=== PATIENT | female | born 2000 | race Hispanic/Latino ===

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

== ENCOUNTER 2020-02-19 19:33 | Emergency (ER) | payer OTHER, SELFPAY ==
[2020-02-19 20:10] LABS: #Basophils 0.1 thou/uL (0.0-0.2); #Eosinphils 0.1 thou/uL (0.0-0.7); #Lymphocytes 2.7 thou/uL (1.20-3.40); #Monocytes 0.8 thou/uL (0.11-0.59); #Neutrophils 8.2 thou/uL (1.40-6.50); %Basophils 0.5 % (0.0-1.0); %Eosinophils 0.5 % (0.0-10.0); %Lymphocytes 23.2 % (28.0-48.0); %Monocytes 6.6 % (0.0-4.0); %Neutrophils 69.2 % (31.0-61.0); Hemoglobin 12.3 g/dL (12.0-16.0); Mean Corpuscular Hemoglobin 30.8 pg (25.0-35.0); Mean Corpuscular Volume 90.8 fL (78.0-98.0); Mean Platelet Volume 7.9 fL (7.4-10.4); Platelet Count 233 thou/uL (130-400); RBC Distribution Width 11.5 % (11.5-14.5); Red Blood Cell (RBC) Count 4.01 mill/uL (4.00-5.20); White Blood Cell (WBC) Count 11.8 thou/uL (4.8-10.8)
[2020-02-19 21:44] LABS: Bacteria/HPF 3+ HPF (None Seen); Bilirubin Negative (Negative); Blood, Urine Negative (Negative); Clarity Extra Turbid (Clear); Glucose, Urine (Dipstick) Normal (Negative); Ketone, Urine Negative (Negative); Leukocyte 25 Leu/uL (Negative); Nitrite Negative (Negative); Protein, Urine (Dipstick) 10 mg/dL (Neg-Trace); RBC/HPF 0-3 HPF (0-3); Specific Gravity, Urine 1.018 (1.002-1.036); Squamous Epithelial 21-50 HPF (0-3); Urobilinogen Normal mg/dL (Less than 2)
== END 2020-02-19 23:39 | disposition home or self-care (01) ==
LOC: ERS 19:33
DX: O23.11 Infections of bladder in pregnancy, first trimester (principal); Z3A.11 11 weeks gestation of pregnancy
CPT/HCPCS: 36415; 81003; 81015; 84702; 85025; 99284

== ENCOUNTER 2020-08-04 22:23 | Emergency (ER) | payer OTHER | END 2020-08-04 23:07 | disposition short-term general hospital (02) | LOC: ERS 22:23 | DX: O60.03 Preterm labor without delivery, third trimester (principal); Z3A.35 35 weeks gestation of pregnancy | CPT/HCPCS: 87480; 87510; 87660; 99285 ==